=== PATIENT | female | born 1935 | race American Indian/Alaskan Native ===

== ENCOUNTER 2020-01-08 22:10 | Emergency (ER) | payer BC, OTHER ==
[~2020-01-08] VITALS: Ht 160 cm; Wt 72.6 kg
[~2020-01-08 22:10] MED LIST: ASPIRIN325 MG PO; BONIVA150 MG PO; CALCIUM + VITA1 EACH PO; CLINDAMYCIN HC300 MG PO; FOLIC ACID1 MG PO; ISOSORBIDE DINI30 MG PO; JANUVIA100 MG PO; LANTUS100 UNIT/1 SQ; LANTUS100 UNITS/ SUB-Q; LASIX40 MG PO; LOTENSIN40 MG PO; NORCO 5-325 TA1 EACH PO; NORVASC10 MG PO; OMEGA-3 KRILL1 EACH PO; PERCOCET 5-3251 EACH PO; PLAVIX75 MG PO; STROVITE FORTE1 EACH PO; SYNTHROID112 MCG PO; TOPROL XL100 MG PO; VITAMIN D31000 UNIT PO; ZOCOR40 MG PO
[2020-01-08] MEDS ORDERED: NORCO 5-325 TA1 EACH PO (22:43)
== END 2020-01-08 22:56 | disposition home or self-care (01) ==
LOC: ED 22:10
DX: R07.81 Pleurodynia (principal); E11.9 Type 2 diabetes mellitus without complications; E03.9 Hypothyroidism, unspecified; I10 Essential (primary) hypertension; I25.2 Old myocardial infarction; Z87.891 Personal history of nicotine dependence; Z88.8 Allergy status to other drugs, medicaments and biological substances; Z88.0 Allergy status to penicillin; Z79.899 Other long term (current) drug therapy; Z79.4 Long term (current) use of insulin; Z79.82 Long term (current) use of aspirin
CPT/HCPCS: 71046; 99283-25

== ENCOUNTER 2020-01-20 02:58 | Emergency (ER) | payer BC, OTHER ==
[~2020-01-20] VITALS: Ht 160 cm; Wt 70.3 kg
--- OUTSIDE RECORDS SUMMARY | 2020-01-20 03:00 | XMS ---
PreManage Notification: ION CANTU Security Station Cashier Events No recent Security Events currently on file CRITERIA MET - [facility] - 2 Visits in 30 Days CARE PROVIDERS There are no care providers on record at this time. Gloria has no Care Guidelines for this patient. [place] VISIT COUNT (12 MO.) [facility] NOTE: Visits indicate total known visits. ED/C VISIT TRACKING (12 MO.) 01/20/2020 02:58 [facility] TYPE: Emergency COMPLAINT: - FALL 01/08/2020 22:[address] [facility] TYPE: Emergency COMPLAINT: - RIB PAIN DIAGNOSES: - Old myocardial infarction - Hypothyroidism, unspecified - Pleurodynia - longterm (current) use of insulin - Other terminal clerk (current) drug therapy - Allergy status to other drugs, medicaments and biological substances - Type 2 diabetes mellitus without complications - Allergy status to penicillin - longterm (current) use of aspirin - Essential (primary) hypertension - Personal history of nicotine dependence INPATIENT VISIT TRACKING (12 MO.) No inpatient visits to display in this time frame [email or web address]
== END 2020-01-20 04:56 | disposition home or self-care (01) ==
LOC: ED 02:58
DX: S42.254A Nondisplaced fracture of greater tuberosity of right humerus, initial encounter for closed fracture (principal); W01.198A Fall on same level from slipping, tripping and stumbling with subsequent striking against other object, initial encounter; E11.9 Type 2 diabetes mellitus without complications; E03.9 Hypothyroidism, unspecified; I10 Essential (primary) hypertension; I25.2 Old myocardial infarction; Z87.891 Personal history of nicotine dependence; Z88.0 Allergy status to penicillin; Z88.8 Allergy status to other drugs, medicaments and biological substances; Z79.899 Other long term (current) drug therapy; Z79.82 Long term (current) use of aspirin; Z79.4 Long term (current) use of insulin
CPT/HCPCS: 73030; 99283-25

== ENCOUNTER 2021-03-01 16:15 | Emergency (ER) | payer OTHER ==
[~2021-03-01] VITALS: Ht 160 cm; Wt 70.3 kg
[2021-03-01] MEDS ORDERED: CRESTOR5 MG PO (16:30)
[2021-03-01] MEDS ORDERED: METFORMIN HCL500 MG PO (16:31)
== END 2021-03-01 19:54 | disposition home or self-care (01) ==
LOC: ED 16:15
DX: S30.0XXA Contusion of lower back and pelvis, initial encounter (principal); W18.30XA Fall on same level, unspecified, initial encounter; E11.9 Type 2 diabetes mellitus without complications; E03.9 Hypothyroidism, unspecified; I10 Essential (primary) hypertension; I25.2 Old myocardial infarction; Z87.891 Personal history of nicotine dependence; Z88.0 Allergy status to penicillin; Z88.8 Allergy status to other drugs, medicaments and biological substances; Z88.1 Allergy status to other antibiotic agents; Z79.899 Other long term (current) drug therapy; Z79.82 Long term (current) use of aspirin; Z79.4 Long term (current) use of insulin; Z79.84 Long term (current) use of oral hypoglycemic drugs
CPT/HCPCS: 70450; 71045; 72100; 72125; 72170; 73502; 99284-25

== ENCOUNTER 2024-01-04 02:32 | Inpatient (IN) | payer MEDICARE, OTHER ==
[2024-01-04] VITALS (8 sets, daily range): BP systolic 136–199; BP diastolic 55–83
[~2024-01-04] VITALS: Ht 160 cm; Wt 68.0 kg
[~2024-01-04 02:32] MED LIST changes: +ACETAMINOPHEN500 MG PO; +ALLER-TEC10 MG PO; +ARICEPT5 MG PO; +DOCUSATE SODIU100 M1 PO; +HYDROMORPHONE HC2 MG PO; +IBUPROFEN600 MG PO; +ISOSORBIDE MONO30 MG PO; +KLOR-CON 1010 MEQ PO; -LANTUS100 UNITS/ SUB-Q; +LIDOCAINE HCL30 M1 MM; +METAMUCIL660 GM PO; +METFORMIN HCL500 MG PO; +NORVASC5 MG PO; +ROSUVASTATIN CA20 MG PO; +SEMGLEE (Y100 UNIT/2 SUB-Q; +SYNTHROID100 MCG PO; -SYNTHROID112 MCG PO; +TUCKS1 EAC1 TOP
[2024-01-04] MEDS ORDERED: NITROGLYCERIN PACKET TOP ONE (02:45)
[2024-01-04 02:57] LABS: PLATELET COUNT 228 K/uL (140-440)
[2024-01-04 03:00] LABS: BASOPHILS 0.5 % (0-2); EOSINOPHILS 0.7 % (0-6); HEMATOCRIT 38.6 % (35.0-50.0); HEMOGLOBIN 12.9 g/dL (12.0-18.0); LYMPHOCYTES 12.4 % (24-44); MCH 29.3 (27-36); MCHC 33.6 g/dl (30-36); MCV 87.3 fl (81-99); MONOCYTES 8.3 % (0-12); NEUTROPHILS 78.1 % (39-80); RBC 4.42 M/ul (4.3-5.7); RDW 13.9 (10.5-15.0)
[2024-01-04 03:07] LABS: PROTIME 12.8 Sec (11.2-14.2)
[2024-01-04 03:14] LABS: AMPHETAMINES, URINE NEGATIVE (NEGATIVE); BARBITURATES, URINE NEGATIVE (NEGATIVE); BENZODIAZEPINE, URINE NEGATIVE (NEGATIVE); BUPRENORPHINE, URINE NEGATIVE (NEGATIVE); CANNABINOID, URINE NEGATIVE (NEGATIVE); COCAINE, URINE NEGATIVE (NEGATIVE); ECSTASY, URINE NEGATIVE (NEGATIVE); FENTANYL, URINE NEGATIVE (NEGATIVE); METHADONE, URINE NEGATIVE (NEGATIVE); OPIATES, URINE NEGATIVE (NEGATIVE); OXYCODONE, URINE NEGATIVE (NEGATIVE); PHENCYCLIDINE, URINE NEGATIVE (NEGATIVE)
[2024-01-04 03:19] LABS: ALBUMIN 3.4 g/dL (3.4-5.0); ALBUMIN/GLOBULIN RATIO 0.79 (1.1-2.4); ANION GAP 16.1 (7-21); BILIRUBIN, TOTAL 1.5 ng/dL (0.2-1.0); BUN/CREATININE RATIO 13.11 (6.0-28.6); CALCIUM 8.7 mg/dL (8.5-10.1); CREATININE, SERUM 1.83 mg/dL (0.55-1.02); MAGNESIUM 2.3 mg/dL (1.8-2.4); POTASSIUM 3.1 mmol/L (3.5-5.1); PROTEIN, TOTAL 7.7 g/dL (6.4-8.2)
[2024-01-04 03:40] LABS: BILIRUBIN, URINE NEGATIVE (negative); BLOOD/HGB, URINE NEGATIVE (Negative); KETONE, URINE NEGATIVE (Negative); LEUK ESTERASE, URINE NEGATIVE (negative); NITRITE, URINE NEGATIVE (negative); PH, URINE 6.5 (5-7)
[2024-01-04 03:45] LABS: EPITHELIAL CELLS, URINE SQUAMOUS 1+ /lpf (0-1+)
[2024-01-04] MEDS ORDERED: POTASSIUM CHLORIDE 10 MEQ TABCR PO ONE (03:45)
[2024-01-04 03:46] LABS: BACTERIA, URINE RARE /hpf (negative); CASTS, URINE NONE SEEN \\lpf; COLLECTION TYPE, URINE CLEAN CATCH; CRYSTALS, URINE NONE SEEN (0-1+); REFLEX CULTURE, URINE No (No); WHITE BLOOD CELLS, URINE 0-1 /HPF (0-5)
[2024-01-04] MEDS ORDERED: CEFTRIAXONE/SODIUM CHLORIDE 2 GM/100 ML PIGGYBACK IV ONE (05:00)
[2024-01-04] MEDS ORDERED: hydrALAZINE HCL 20 MG/ML VIAL IV ONE (05:00)
[2024-01-04] MEDS ORDERED: IBUPROFEN 600 MG TAB PO PRN (05:15)
[2024-01-04] MEDS ORDERED: HYDROmorphone HCL 1 MG/ML SYR IV PRN ×2 (05:15→07:30)
[2024-01-04] MEDS ORDERED: ondansetron HCL 4 MG/2 ML VIAL IV PRN ×2 (05:15→07:30)
[2024-01-04] MEDS ORDERED: DEXTROSE 5% - LACTATED RINGERS 1,000 ML IV SCH (05:15)
[2024-01-04 06:01] LABS: ABO A; ANTIBODY SCREEN NEGATIVE; RH POSITIVE
--- NOTE | 2024-01-04 06:05 | NUR ---
Patient arrives to CCU room 127 via stretcher. Patient confused to situation, surroundings, date, time. Oriented to self and states lives at home alone with nephew who "checks on her". On RA, HR NSR in 70s with few PVCs noted. Systolic murmur noted. Pt unsure of last BM. Skin grossly intact-- healing scabs noted scattered on bilat lower legs. Trace edema noted to bilat legs. Pt flinches when palpated pulses, states had "a surgery long ago". Unable to recall any health hx at this time, or medications, drug allergies etc. Hx and assessment complete with best ability given pt limited memory. Bed alarm in place. IV infusing per order.
--- NOTE | 2024-01-04 06:30 | EKG ---
[facility] [address] [facility] [place] [address] Signed Normal sinus rhythm Left axis deviation Left ventricular hypertrophy with repolarization abnormality ( R in aVL , Polacca product ) Cannot rule out Septal infarct (cited on or before 22-OCT-2021) Abnormal ECG When compared with ECG of 23-FEB-2022 08:42, No significant change was found Confirmed by Dion Ross MD ([id number]) on 01/04/2024 6:30:35 AM Electronically Signed By: DION ROSS MD 01/04/24 0630 PATIENT NAME: ION CANTU Electrocardiogram DATE OF : 33 PHYSICIAN: DION ROSS MD REPORT #: [id number] REPORT IS CONFIDENTIAL AND NOT TO BE RELEASED WITHOUT AUTHORIZATION
[2024-01-04] MEDS ORDERED: POTASSIUM CHLORIDE 40 MEQ in DEXTROSE 5% 250 ML IV ONE (06:45)
[2024-01-04] MEDS ORDERED: OXYCODONE HCL 5 MG TAB PO PRN (07:30)
[2024-01-04] MEDS ORDERED: ACETAMINOPHEN 325 MG TAB PO PRN (07:30)
[2024-01-04] MEDS ORDERED: PROCHLORPERAZINE EDISYLATE 10 MG/2 ML VIAL IV PRN (07:30)
[2024-01-04] MEDS ORDERED: LACTATED RINGER'S 1,000 ML IV SCH (07:30)
[2024-01-04] MEDS ORDERED: POTASSIUM CHLORIDE 10 MEQ TABCR PO SCH ×2 (08:00)
[2024-01-04] MEDS ORDERED: Insulin Regular, Human 100 UNIT/ML ML SUB-Q SCH (08:00)
--- NOTE | 2024-01-04 08:20 | NUR ---
UR CLINICAL REVIEW: MCG: MEETS INPT CRITERIA FOR PANCREATITIS WITH COMMON DUCT STONE CRITERIA [facility] INPT 01/04/24 @ 0500 ORDER MATCHES REG AUTH PENDING, WILL SEND CLINICALS VIA [employer] TODAY DC PLAN PENDING CASE MANAGEMENT ASSESSMENT 01/06/24
--- NOTE | 2024-01-04 08:37 | NUR ---
PATIENT UP TO VOID. PT IS A 1PA TO [facility]. PT VERY CONFUSED AND HAS BASELINE DEMENTIA PER REPORT. PT UNSURE OF WHERE SHE IS AT, BUT KNOWS SHE IS ISN'T AT HOME AND KNOWS SHE IS IN A HOSPITAL, UNSURE OF WHICH. PT ORIENTED TO SELF, BUT NOT TO ANYTHING ELSE. PT VERY FIXATED ON WIRES/CORDS/IV SITES/ID BRACELETS. PT ENDORSES PAIN IN HER MID STERNUM AREA WHEN ASKED IF SHE IS HAVING PAIN, RATING IT A 6/10. PT STATES SHE RECENTLY HAS BEEN SEEN AT [facility].
[2024-01-04] MEDS ORDERED: PANTOPRAZOLE SODIUM 40 MG TABEC PO SCH (09:00)
[2024-01-04] MEDS ORDERED: FUROSEMIDE 40 MG/4 ML VIAL IV SCH (09:00)
[2024-01-04] MEDS ORDERED: DONEPEZIL HCL 5 MG TAB PO SCH (09:00)
[2024-01-04] MEDS ORDERED: CEFTRIAXONE/SODIUM CHLORIDE 2 GM/100 ML PIGGYBACK IV SCH (09:00)
[2024-01-04] MEDS ORDERED: METOPROLOL SUCCINATE 100 MG TABCR PO SCH (09:02)
[2024-01-04] MEDS ORDERED: GLUCAGON,HUMAN RECOMBINANT 1 MG/ML VIAL SUB-Q PRN (09:15)
[2024-01-04] MEDS ORDERED: IBLOOD GLUCOSE TEST STRIP 1 EA TEST XX PRN (09:15)
[2024-01-04] MEDS ORDERED: DEXTROSE 5% 1,000 ML IV PRN (09:15)
[2024-01-04] MEDS ORDERED: DEXTROSE 50% 50 ML SYR IV PRN ×2 (09:15)
--- NOTE | 2024-01-04 09:43 | CONS ---
[facility] [address] [place], [place] [address] Signed DATE OF CONSULTATION: 01/04/2024 CHIEF COMPLAINT: Epigastric/chest pain. HISTORY OF PRESENT ILLNESS: Ion is an 88-year-old female, who appears to have moderately significant dementia. She was talking about chest pain and had an emesis yesterday about 2 hours prior to admission. She apparently lives alone, but does not drive. In the emergency room, she was treated for acute coronary syndrome initially. She is on Plavix, although her cardiac stent was in 2005. She was given some aspirin yesterday. Her vital signs have been fine, but her liver function test came back elevated with a slight increase in her lipase. Chest x-ray was fine. The ultrasound showed multiple gallstones. No gallbladder wall thickening. Common bile duct is unremarkable and there is no pericholecystic inflammation. Therefore, there was concern for biliary colic. She was given Rocephin and Flagyl. I was asked to admit her as a general surgeon on-call. We have contacted our hospital service as well. PAST MEDICAL HISTORY: Diabetes, hypothyroidism, hypertension, VA, back pain, congestive heart failure per the family, and dementia. PAST SURGICAL HISTORY: Includes a cardiac stent in 2005, hysterectomy and appendectomy. SOCIAL HISTORY: She does not smoke or drink. Leah Luxcliff is her primary care provider at the [facility]. She thinks she sees a airplane and engine inspector in [place], [place]. She says she lives alone, but does not drive and some young men helps her. Her daughter is Margy at [phone]. FAMILY HISTORY: She is not able to provide that. REVIEW OF SYSTEMS: She really could not provide that either. ALLERGIES: Ferrlecit, penicillin and . MEDICATIONS: 1. Tylenol. 2. Folate. Electronically Signed By: MARY CARMEN MEDLEY MD 01/04/24 0943 PATIENT NAME: ION CANTU CONSULTATION DATE OF : 33 REPORT #: [id number] PHYSICIAN: MARY CARMEN MEDLEY MD PCP: LEAH TAMEZ PAC REPORT IS CONFIDENTIAL AND NOT TO BE RELEASED WITHOUT AUTHORIZATION [facility] [address] [place] [id number] Signed 3. Metoprolol. 4. Levothyroxine. 5. Insulin. 6. Rosuvastatin. 7. Plavix. 8. Amlodipine. 9. Potassium chloride. 10. Isosorbide. 11. Lasix. 12. Aricept. PHYSICAL EXAMINATION: VITAL SIGNS: Her blood pressure is 136/58, heart rate 71, respiratory rate 14, temperature is 98.1. She is 98% on room air. She is 5 feet 3 inches at 68 kg. The body mass index is 26. GENERAL: Ion is an 88-year-old female lying supine in her hospital bed, sleeping. She was aroused, alert and awake, and interactive. She clearly has dementia. LUNGS: Clear to auscultation bilaterally. HEART: Regular rate and rhythm with a quiet 3/6 systolic murmur. ABDOMEN: Soft and flat, nontender. There are no palpable masses. LABORATORY DATA: Her white blood cell count is 10.9, hemoglobin 12 neutrophils 78. Potassium is 3.1, creatinine 1.83. Troponin was negative. INR 1. Urinalysis negative. Total bilirubin slightly up at 1.5, AST 500, ALT 211, alkaline phosphatase 146, lipase 101. BNP is up at 1865, albumin is 3.4. Urine drug screen was negative. An EKG was done, but it is not on the chart currently. RADIOGRAPHIC STUDIES: Chest x-ray was unremarkable. The ultrasound showed cholelithiasis with no gallbladder wall thickening. The common bile duct is unremarkable at 5.9 mm. There is no pericholecystic inflammation. ASSESSMENT AND PLAN: Ion is an 88-year-old female with dementia, who appears to have had an episode of biliary colic and possibly biliary pancreatitis on admission to the hospital. At this point, we are going to admit her and we will hold the Plavix and we will acquire some of her previous records from the [facility] as well as her airplane and engine inspector and try to sort this out while we are waiting for the Plavix to wear off. We will have to talk to her daughter as well. She may need her gallbladder removed here in a few days. I reviewed this with Ion. She has expressed understanding and agrees with the above plan. Electronically Signed By: MARY CARMEN MEDLEY MD 01/04/24 0943 PATIENT NAME: ION CANTU CONSULTATION DATE OF : 33 REPORT #: [id number] PHYSICIAN: MARY CARMEN MEDLEY MD PCP: LEAH TAMEZ PAC REPORT IS CONFIDENTIAL AND NOT TO BE RELEASED WITHOUT AUTHORIZATION [address] [address] Signed Mary Carmen Medley MD ALB/MODL /[id number] cc: Leah Medley MD Copies: LEAH TAMEZ ANDREW L MD ~ Electronically Signed By: MARY CARMEN MEDLEY MD 01/04/24 0943 PATIENT NAME: ION CANTU CONSULTATION DATE OF : 33 REPORT #: [id number] PHYSICIAN: MARY CARMEN MEDLEY MD PCP: LEAH TAMEZ REPORT IS CONFIDENTIAL AND NOT TO BE RELEASED WITHOUT AUTHORIZATION
--- NOTE | 2024-01-04 10:41 | NUR ---
SPOKE WITH DAUGHTER, CAROL ANN, ON THE PHONE. STATES PATIENT LIVES IN SINGLE LEVEL HOUSE WITH HER GRANDSON. THERE ARE MORE FAMILY MEMBERS NEXT DOOR AND WITHIN THE NEXT 3 HOUSES NEARBY. PATIENT IS GENERALLY VERY INDEPENDENT BUT DOES ALWAYS HAVE FAMILY PRESENT IN THE HOME TO ASSIST HER. NO STAIRS IN THE HOME. PATIENT HAS A WALKER SHE USES AND A WHEELCHAIR FOR OUTINGS AND DISTANCE. SHE IS CURRENTLY BEING SEEN OUTPATIENT PT TWICE A WEEK AT [facility]. [facility] PROVIDES TRANSPORT TO THESE APPOINTMENTS. FAMILY PROVIDES TRANSPORT FOR EVERYTHING ELSE. NO FINANCIAL CONCERNS. NO CASE MANAGEMENT NEEDS AT THIS TIME. INSTRUCTED TO NOTIFY STAFF IF ANYTHING CHANGES.
--- NOTE | 2024-01-04 10:59 | NUR ---
VISITED DURING SPIRITUAL CARE ROUNDS. PT VERY CONFUSED. APPEARED TO HAVE GREAT DIFFICULTY FOLLOWING CONVERSATION, KEPT ASKING ABOUT FAMILY, UNABLE TO REMEMBER RECENT STATEMENTS. STOVE BOTTOM WORKER PROVIDED SUPPORTIVE PRESENCE, HOSPITALITY, PRAYER.
--- NOTE | 2024-01-04 11:11 | NUR ---
PATIENT HAS BEEN VERY RESTLESS THIS AM, CONFUSED TO PLACE AND HAS BEEN LOOKING FOR HER FAMILY. PT HAS SET BED ALARM OFF MANY TIMES SHE IS TRYING TO GET UP TO LOOK OUT IN HALLWAY FOR HER FAMILY. PT'S DAUGHTER CAROL ANN CALLED AT [phone], AND SHE REPORTS THAT SHE PLANS TO COME IN TO SEE HER MOTHER SOMETIME TODAY. PT CONFUSED BY THE IV LINES, IV SITES, ID BANDS AND HAS PULLED OUT THE IV SITE IN LEFT AC. PT MOVING TO ROOM 121 ON MED/SURG.
[2024-01-04] MEDS ORDERED: VITAMIN D325 MCG PO (11:47)
[2024-01-04] MEDS ORDERED: ASPIRIN EC325 MG PO (11:48)
--- NOTE | 2024-01-04 11:55 | NUR ---
PATIENT TO MED SURG, SLEEPING WELL. ASSESSMENT IS COMPLETE.
[2024-01-04] MEDS ORDERED: IBLOOD GLUCOSE TEST STRIP 1 EA TEST XX SCH (12:00)
[2024-01-04] MEDS ORDERED: INSULIN LISPRO 100 UNIT/ML ML SUB-Q SCH (12:00)
--- NOTE | 2024-01-04 12:17 | NUR ---
PT UP TO USE COMMODE WITH 2 PERSON ASSIST, TOLERATED WELL. PT IN BED SITTING UP EATING LUNCH WITH DAUGHTER'S ASSISTANCE. BED ALARM ON. CALL LIGHT WITHIN REACH.
--- NOTE | 2024-01-04 16:20 | NUR ---
PATIENT UP TO COMMODE TO VOID, SMALL BM. PATIENT BACK TO BED WITH BED ALARM ON. PATIENT SALINE LOCKED DUE TO CONTINUOUSLY TRYING TO GET UP OUT OF BED.. FLOOR MAT IN PLACE.
[2024-01-04] MEDS ORDERED: PRESERVISION A1 EAC3 PO (16:26)
[2024-01-04] MEDS ORDERED: MULTI VITAMIN1 EACH PO (16:26)
--- NOTE | 2024-01-04 16:27 | NUR ---
MED REC COMPLETE
--- NOTE | 2024-01-04 16:32 | NUR ---
PATIENT IN BED AT THIS TIME. BALL ENDER AND RN ASSISTED PATIENT TO THE BEDSIDE COMMODE AND THEN BACK TO BED. CALL LIGHT WITHIN REACH, NO FURTHER NEEDS AT THIS TIME.
--- NOTE | 2024-01-04 17:35 | NUR ---
PATIENT SITTING UP IN BED TO HAVE DINNER, POOR APPETITE NOTED. PATIENT PREFERRED CHOCOLATE ENSURE INSTEAD OF REGULAR DINNER.
--- NOTE | 2024-01-04 19:42 | NUR ---
REPORT RECIEVED FROM DAY SHIFT RN. PATIENT RESTING IN BED WITH DAUGHTER AT BEDSIDE. NO FURTHER NEEDS. CALL LIGHT IN REACH.
--- NOTE | 2024-01-04 20:58 | NUR ---
PATIENT RESTING IN BED WITH DAUGHTER AT BEDSIDE. VS AND I&Os OBTAINED AND RECORDED. PATIENT KOKI WELL. SCHEDULED AND PRN PAIN MEDICATION ADMINISTERED. BS OBTAINED AND RECORDED. SS INSULIN ADMINISTERED PER ORDER. IV FLUID INFUSING PER ORDER. IV FLUSHES WNL. PATIENT EDUCATED ON IV AND TO BE VERY GENTLE WITH IT AND NOT TO PULL IN OUT. PATIENT VERBILIZES UNDERSTANDING. PATIENT UP TO BSC WITH MINIMAL SBA TO VOID. PATIENT BACK TO BED. FALL MATS IN PLACE. BED ALARM ON FOR SAFETY. PATIENT EDUCATED TO ROOM AND CALL LIGHT. COLD WASH CLOTH PLACED ON FOREHEAD. PATIENT HAS NO FURTHER NEEDS AT THIS TIME. DAUGHTER HEADED HOME FOR THE NIGHT. CALL LIGHT IN REACH.
--- NOTE | 2024-01-04 20:59 | NUR ---
VERBAL ORDER FROM MD FOR MELATONIN, ORDER REPEATED BACK TO VERIFY. EMAR UPDATED.
[2024-01-04] MEDS ORDERED: MELATONIN 3 MG TAB PO SCH (21:00)
[2024-01-04] MEDS ORDERED: SENNOSIDES/DOCUSATE 1 EA TAB PO SCH (21:00)
--- NOTE | 2024-01-04 21:35 | NUR ---
BED ALARM, ALARMING. PATIENT STATED SHE THOUGHT SOMETHING FELL ON THE GROUND AND SHE WAS TRYING TO GET IT. PRN SLEEP MEDICATION ADMINISTERED PER PATIENT REQUEST. PATIENT DENIES FURTHER NEEDS. BED ALARM ON FOR SAFETY. CALL LIGHT IN REACH.
[2024-01-05] VITALS (11 sets, daily range): BP systolic 149–196; BP diastolic 54–79
--- NOTE | 2024-01-05 00:07 | NUR ---
PATIENT RESTING IN BED ON BACK WITH EYES CLOSED. RESPIRATIONS EVEN AND UNLABORED. CALL LIGHT IN REACH.
--- NOTE | 2024-01-05 02:13 | NUR ---
PATIENT RESTING IN BED WITH EYES CLOSED. RESPIRATIONS EVEN AND UNLABORED. CALL LIGHT IN REACH.
--- NOTE | 2024-01-05 03:26 | NUR ---
PATIENT RESTING IN BED ON BACK WITH EYES CLOSED. RESPIRATIONS EVEN AND UNLABORED. CALL LIGHT IN REACH.
--- NOTE | 2024-01-05 05:29 | NUR ---
NEW BAG IV FLUID INFUSING PER ORDER. VS AND I&Os OBTAINED AND RECORDED. PATIENT UP TO BSC WITH SBA TO VOID. PATIENT BACK TO BED. PATIENT BED ALARM ON FOR SAFETY. NO FURTHER NEEDS. CALL LIGHT IN REACH.
[2024-01-05 05:48] LABS: BASOPHILS 0.6 % (0-2); HEMATOCRIT 38.1 % (35.0-50.0); HEMOGLOBIN 12.9 g/dL (12.0-18.0); LYMPHOCYTES 13.2 % (24-44); MCH 29.5 (27-36); MCHC 33.8 g/dl (30-36); MCV 87.2 fl (81-99); MONOCYTES 10.9 % (0-12); NEUTROPHILS 74.3 % (39-80); PLATELET COUNT 211 K/uL (140-440); RBC 4.36 M/ul (4.3-5.7); RDW 14.2 (10.5-15.0)
[2024-01-05 06:03] LABS: ALBUMIN 2.5 g/dL (3.4-5.0); ALBUMIN/GLOBULIN RATIO 0.64 (1.1-2.4); ANION GAP 11.7 (7-21); BILIRUBIN, TOTAL 4.1 ng/dL (0.2-1.0); BUN/CREATININE RATIO 12.2 (6.0-28.6); CALCIUM 8.3 mg/dL (8.5-10.1); CREATININE, SERUM 1.72 mg/dL (0.55-1.02); MAGNESIUM 2.3 mg/dL (1.8-2.4); PHOSPHORUS, INORGANIC 3.5 mg/dL (2.5-4.9); POTASSIUM 3.7 mmol/L (3.5-5.1); PROTEIN, TOTAL 6.4 g/dL (6.4-8.2)
--- NOTE | 2024-01-05 07:20 | NUR ---
RECEIVED REPORT FROM GERSON MARINA. PT RESTING IN BED WITH EYES CLOSED, BREATHING EVEN AND UNLABORED. CALL LIGHT WITHIN REACH.
--- NOTE | 2024-01-05 07:52 | NUR ---
UR CLINICAL REVIEW: MCG: MEETS INPT CRITERIA FOR PANCREATITIS WITH COMMON DUCT STONE CRITERIA [facility]IC[facility] INPT 01/04/24 @ 0500 ORDER MATCHES REG NO AUTH REQUIRED PER MEDICARE RULES DC PLAN PENDING CASE MANAGEMENT ASSESSMENT
--- NOTE | 2024-01-05 08:22 | NUR ---
PT RESTING IN BED WITH EYES CLOSED, AWAKENS TO RN VOICE. PT DENIES PAIN, NAUSEA AND SOB AT THIS TIME. PT STATES NO NEEDS AT THIS TIME. PT UPDATED ON POC, STATES SHE HAS NO QUESTIONS AT THIS TIME. PT DENIES TENDERNESS IN ABDOMEN AT THIS TIME, BOWEL TONES REMAIN ACTIVE, NO DISTENTION PRESENT. CALL LIGHT WITHIN REACH, PT STATES SHE WOULD LIKE TO CONTINUE TO REST. PO MEDICATIONS HELD PER DR. DAVIS D/T IMAGING SCHEDULED TODAY. PT NPO UNTIL IMAGING PER DR. DAVIS.
--- NOTE | 2024-01-05 08:51 | NUR ---
PT UP TO BSC WITH 1PA. PT BACK TO BED AFTER BSC, STATES NO NEEDS AT THIS TIME. CALL LIGHT WITHIN REACH, BED ALARM ON FOR SAFETY.
[2024-01-05] MEDS ORDERED: ISOSORBIDE MONONITRATE 30 MG TABCR PO SCH (09:00)
[2024-01-05] MEDS ORDERED: AMLODIPINE BESYLATE 5 MG TAB PO SCH (09:00)
[2024-01-05] MEDS ORDERED: LEVOTHYROXINE SODIUM 112 MCG TAB PO SCH (09:00)
--- NOTE | 2024-01-05 10:15 | NUR ---
PT RESTING IN BED WITH EYES CLOSED. DAUGHTER AT THE BEDSIDE COMPLETING MRI SCREENING FORM. NO NEEDS IDENTIFIED AT THIS TIME, CALL LIGHT WITHIN REACH.
--- NOTE | 2024-01-05 11:45 | NUR ---
PT UP TO BSC, SISTER AT THE BEDSIDE. PT BACK TO BED AFTER BSC, STATES NO FURTHER NEEDS. PT REFUSED GETTING UP TO CHAIR AT THIS TIME. CALL LIGHT WITHIN REACH.
--- NOTE | 2024-01-05 12:54 | NUR ---
PT OFF FLOOR WITH XRAY ANJALI FOR MRCP. DTR IN ROOM.
--- NOTE | 2024-01-05 13:35 | NUR ---
PT SITTING UP IN BED, DAUGHTER AT THE BEDSIDE ASSISTING PT WITH LUNCH TRAY. PT AND DAUGHTER STATE NO NEEDS CURRENTLY. CALL LIGHT WITHIN REACH.
--- NOTE | 2024-01-05 16:34 | NUR ---
PATIENT IS SITTING UPRIGHT IN BED WITH EYES OPEN AND RESPIRATIONS ARE EVEN AND UNLABORED. CALL LIGHT AND PERSONAL BELONGINGS ARE WITHIN REACH.
--- NOTE | 2024-01-05 17:26 | NUR ---
PATIENT IS SITTING UPRIGHT IN BED AND GETTING ASSISTANCE WITH DINNER FROM AMAN GRANT. CALL LIGHT AND PERSONAL BELONGINGS ARE WITHIN REACH.
--- NOTE | 2024-01-05 17:31 | NUR ---
ASSISTED PT TO BED SIDE COMMODE. GOT PT BACK IN BED AND SAT UP FOR DINNER. BED ALARM IS ON. PT DIDNT NEED ANYTHING ELSE.
--- NOTE | 2024-01-05 19:30 | NUR ---
REPORT RECIEVED FROM DAY SHIFT RN. PATIENT RESTING IN BED. BED ALARM ON FOR SAFETY. CALL LIGHT IN REACH.
--- NOTE | 2024-01-05 19:50 | NUR ---
RACHAEL VARGAS PT OUT OF BED, WITH IV STRECHED. EASILY REDIRECTED BACK TO BED, GERSON ARIAS WILL ASSIST HER TO BSC.
--- NOTE | 2024-01-05 20:00 | NUR ---
IN RM pt BED ALARM SOUNDING. pt SITTING AT EDGE OF BED STATING SHE HAD TO PEE. THIS RN AND NON EMERGENCY SERVICES AMBULANCE DRIVER GOT HELPED pt TRANSFER VIA SBA TO BSC. pt HAD A SM BM AND URINATED. THIS RN HELP pt TRANSFER BACK TO THE BED. AND HELPED THE pt GET COMFORTABLE. pt DENIES ANY OTHER NEEDS AT THIS TIME. CALL LIGHT WITHIN REACH.
[2024-01-05] MEDS ORDERED: NITROGLYCERIN 0.4 MG SUBL SL PRN (20:30)
--- NOTE | 2024-01-05 20:31 | NUR ---
PATIENT WITH COMPLAINTS OF CHEST PAIN. PATIENT UNABLE TO RATE HER PAIN, BUT STATES THE PAIN IS IN HER MID/LEFT CHEST. MD NOTIFIED. NEW ORDERS RECIEVED. VERIFIED USING REPEATBACK METHOD.
--- NOTE | 2024-01-05 20:50 | NUR ---
PRN MEDICATION ADMINISTERED.
--- NOTE | 2024-01-05 21:36 | NUR ---
THIS RN CALLED MD REGARDING PATIENT TROPONIN LAB. MD STATES TROPONIN LABS ARE NEGATIVE. NO NEW ORDERS.
--- NOTE | 2024-01-05 21:48 | NUR ---
COIN MACHINE SERVICER REPAIRER 1PA PT TO BSC. PT ABLE TO VOID. PT ASSISTED BACK TO BED. OUTPUT NOTED. PT STATES NO FURTHER NEEDS AT THIS TIME. CALL LIGHT WITHIN REACH AND BED ALARM ON WITH RN IN ROOM.
--- NOTE | 2024-01-05 21:50 | NUR ---
PATIENT UP TO BSC WITH SBA TO VOID. PATIENT BACK TO BED. SCHEDULED MEDICATION ADMINISTERED. BS OBTAINED AND RECORDED. SS INSULIN ADMINSITERED PER ORDER. IV FLUSHES WNL. PATIENT DENIES PAIN AT THIS TIME. BED ALARM ON FOR SAFETY. CALL LIGHT IN REACH.
--- NOTE | 2024-01-05 23:12 | NUR ---
PATIENT RESTING IN BED. WARM BLANKET PROVIDED. PATIENT DENIES FURTHER NEEDS. CALL LIGHT IN REACH.
[2024-01-06] VITALS (8 sets, daily range): BP systolic 142–200; BP diastolic 56–66
--- NOTE | 2024-01-06 00:08 | NUR ---
CALL LIGHT ANSWERED. PT NEEDED TO USE BAHTROOM. BRIGHT CUTTER 1PA TO BSC. PT VOIDED AND ASSISTED BACK TO BED. OUTPUT NOTED. PT STATES NO FURTHER NEEDS AT THIS TIME. CALL LIGHT WITHIN REACH AND BED ALARM ON.
--- NOTE | 2024-01-06 01:18 | NUR ---
CALL LIGHT ANSWERED. PATIENT UP WITH 1P SBA TO BSC TO VOID. PATIENT BACK TO BED. BED ALARM ON FOR SAFETY. CALL LIGHT IN REACH.
--- NOTE | 2024-01-06 02:10 | NUR ---
PATIENT RESTING IN BED ON BACK WITH EYES CLOSED. RESPIRATIONS EVEN AND UNLABORED. CALL LIGHT IN REACH.
--- NOTE | 2024-01-06 03:31 | NUR ---
CALL LIGHT ANSWERED. PATIENT UP TO BSC TO VOID USING SBA. PATIENT BACK TO BED. PATIENT IV LEAKING. IV DCd WNL WITH TIP INTACT. NEW IV PLACED IN LEFT FOREARM BY THIS RN. PATIENT KOKI WELL. IV INFUSING FLUID PER ORDER. BED ALARM ON FOR SAFETY. PATIENT HAS NO FURTHER NEEDS. CALL LIGHT IN REACH.
--- NOTE | 2024-01-06 04:23 | NUR ---
CALL LIGHT ANSWERED. PT NEEDED TO USE BATHROOM. MIDDLE SCHOOL ART TEACHER 1PA TO BSC. PT VOIDED AND ASSISTED BACK TO BED. PT STATES NO FURTHER NEEDS AT THIS TIME. CALL LIGHT WITHIN REACH AND BED ALARM ON.
[2024-01-06 05:30] LABS: BASOPHILS 0.5 % (0-2); EOSINOPHILS 1.4 % (0-6); HEMATOCRIT 37.8 % (35.0-50.0); HEMOGLOBIN 12.8 g/dL (12.0-18.0); MCH 29.6 (27-36); MCHC 33.9 g/dl (30-36); MCV 87.4 fl (81-99); MONOCYTES 11.4 % (0-12); NEUTROPHILS 71.7 % (39-80); PLATELET COUNT 210 K/uL (140-440); RBC 4.32 M/ul (4.3-5.7); RDW 14.3 (10.5-15.0)
--- NOTE | 2024-01-06 05:47 | NUR ---
MD NOTIFIED OF PATIENTS BP. STATES TO GIVE PATIENT A DOSE OF PRN PAIN MEDICATION. PRN MEDICATION ADMINISTERED. NO FURTHER NEEDS. CALL LIGHT IN REACH.
[2024-01-06 05:51] LABS: ALBUMIN 2.5 g/dL (3.4-5.0); ALBUMIN/GLOBULIN RATIO 0.61 (1.1-2.4); ANION GAP 11.7 (7-21); BILIRUBIN, TOTAL 3.1 ng/dL (0.2-1.0); BUN/CREATININE RATIO 13.83 (6.0-28.6); CALCIUM 8.4 mg/dL (8.5-10.1); CREATININE, SERUM 1.59 mg/dL (0.55-1.02); MAGNESIUM 2.2 mg/dL (1.8-2.4); PHOSPHORUS, INORGANIC 2.4 mg/dL (2.5-4.9); POTASSIUM 3.7 mmol/L (3.5-5.1); PROTEIN, TOTAL 6.6 g/dL (6.4-8.2)
--- NOTE | 2024-01-06 06:23 | NUR ---
SALVAGE INSPECTOR WOOD PARTS 1PA PT TO BSC. PT VOIDED AND HAD SMALL BM. PT THEN ASSISTED WITH PUTTING ON NEW BREIF AND WAS ASSISTED BACK TO BED. OUTPUT NOTED AND PT STATES NO FURTHER NEEDS AT THIS TIME. CALL LIGHT WITHIN REACH AND BED ALARM ON.
[2024-01-06] MEDS ORDERED: SODIUM PHOSPHATE 30 MMOL in DEXTROSE 5% 250 ML IV ONE (07:15)
--- NOTE | 2024-01-06 07:15 | NUR ---
REPORT RECEIVED FROM CHEMICAL LAB SUPERVISOR RN. PATIENT RESTING IN BED, CONFUSED. REORIENTED TO CURRENT SITUTATION AND PLACE. NO FURTHER NEEDS AT THIS TIME. BED ALARM ON. CALL LIGHT WITHIN REACH.
--- NOTE | 2024-01-06 07:20 | NUR ---
PT LYING IN BED, AWAKENS TO RN IN ROOM. PT STATES SHE IS CONFUSED, DOES NOT KNOW WHERE SHE IS. PT REORIENTED, UPDATED ON POC. PT STATES SHE UNDERSTANDS PLAN AT THIS TIME. PT DENIES ANY CURRENT NEEDS. CALL LIGHT WITHIN REACH. BED ALARM ON FOR SAFETY.
--- NOTE | 2024-01-06 07:50 | NUR ---
PT TO IMAGING.
--- NOTE | 2024-01-06 08:07 | NUR ---
Patient was awake but extremely confused. Toileting was offered but refused, other cares were accepted. Tech entered and took the patient to imaging.
--- NOTE | 2024-01-06 09:05 | NUR ---
PT CONTINUES TO BE OFF MEDICAL FLOOR FOR IMAGING.
--- NOTE | 2024-01-06 10:25 | NUR ---
PT LYING IN BED AWAKE IN BED, DAUGHTER AT THE BEDSIDE. PT DENIES PAIN, INCLUDING TO PALPATION OF ABDOMEN. PT DENIES NAUSEA AND SOB AT THIS TIME. PT TOLERATING NPO AT THIS TIME, TAKES PO MEDICATIONS PER MD ORDER AND OKAY FROM IMAGING WITH SMALL SIPS OF WATER W/O DIFFICULTY. PT STATES NO NEEDS AT THIS TIME, PT AND DAUGHTER UPDATED ON POC, PT AND DAUGHTER STATE NO FURTHER QUESTIONS AT THIS TIME. CALL LIGHT WITHIN REACH, BED ALARM ON FOR SAFETY.
--- NOTE | 2024-01-06 10:42 | NUR ---
IMAGING ARRIVES TO TAKE PT FOR IMAGING. PT WHEELED FROM UNIT BY IMAGING STAFF.
--- NOTE | 2024-01-06 11:32 | NUR ---
PT RESTING IN BED WITH EYES CLOSED, BREATHING EVEN AND UNLABORED. CALL LIGHT WITHIN REACH. BED ALARM ON FOR SAFETY.
--- NOTE | 2024-01-06 11:36 | NUR ---
THIS RN CONTACTS IMAGING DEPARTMENT REGARDING PLANS FOR IMAGING, IMAGING STAFF STATES IMAGING ORDERED IS COMPLETE AT THIS TIME AND NPO STATUS CAN END AT THIS TIME.
[2024-01-06] MEDS ORDERED: FUROSEMIDE 40 MG TAB PO ONE (12:00)
--- NOTE | 2024-01-06 12:08 | NUR ---
Patient was asleep in bed and woke up upon entering the room. They complained of being cold and asked for a warm blanket that was then given. No other cares were requested.
--- NOTE | 2024-01-06 14:02 | NUR ---
PT RESTING IN BED WITH EYES CLOSED, DAUGHTER AT THE BEDSIDE. CALL LIGHT WITHIN REACH.
--- NOTE | 2024-01-06 14:38 | NUR ---
VISITED DURING SPIRITUAL CARE ROUNDS. PT APPEARED TO BE SLEEPING. DID NOT DISTURB. PROVIDED PRAYER.
--- NOTE | 2024-01-06 15:00 | NUR ---
Patient was awake and their daughter was visiting. BSC was offered and refused. Applesauce was requested and given. No other cares were requested.
--- NOTE | 2024-01-06 15:31 | EKG ---
[facility] [address] [facility] [place] [address] Signed Normal sinus rhythm Left axis deviation Left ventricular hypertrophy with repolarization abnormality Cannot rule out Septal infarct (cited on or before 22-OCT-2021) Abnormal ECG When compared with ECG of 04-JAN-2024 02:39, No significant change was found Confirmed by Dion Ross MD ([id number]) on 01/06/2024 3:30:51 PM Electronically Signed By: DION ROSS MD 01/06/24 1531 PATIENT NAME: ION CANTU Electrocardiogram DATE OF : 33 PHYSICIAN: DION ROSS MD REPORT #: [id number] REPORT IS CONFIDENTIAL AND NOT TO BE RELEASED WITHOUT AUTHORIZATION
--- NOTE | 2024-01-06 15:36 | NUR ---
PATIENT IN BED AT THIS TIME. FLUID PUMP OPERATOR ASSISTED PATIENT TO BEDSIDE COMMODE AND THEN BACK TO BED. PATIENT IS A ONE PERSON ASSIST. CALL LIGHT WITHIN REACH, NO FURTHER NEEDS AT THIS TIME.
--- NOTE | 2024-01-06 15:40 | NUR ---
PT SITTING UP IN BED, DAUGHTER AT THE BEDSIDE. PT DENIES PAIN AND NAUSEA AT THIS TIME. PT WAS ABLE TO EAT LUNCH W/O DIFFICULTY WITH ASSISTANCE FROM DAUGHTER. PT AND DAUGHTER STATE NO CURRENT NEEDS, CALL LIGHT WITHIN REACH.
--- NOTE | 2024-01-06 16:50 | NUR ---
THIS RN RESPONDS TO CALL LIGHT. PT LYING IN BED AWAKE, DAUGHTER AT THE BEDSIDE. PT STATES SHE NEEDS TO USE RESTROOM, PT UP TO [facility] WITH 1PA. PT'S IV CLAVE BECOMES UNATTATCHED FROM IV, BLOOD FROM IV GETS ON DRESSING, PT GOWN AND IN CLAVE. CLAVE REPLACED, IV FLUSHED, PATENT. OLD DRESSING REMOVED, AREA CLEANED WITH CHLORAHEXADINE, SKIN PREP PLACED, NEW DRESSING IN PLACE. NEW GOWN IN PLACE. PT BACK TO BED FROM [facility], HAS ASSISTANCE FROM NURSING STAFF TO BOOST UP IN BED AND REPOSITION. DINNER TRAY SET UP FOR PT, DAUGHTER STATES SHE WILL ASSIST PT WITH DINNER. PT STATES NO FURTHER NEEDS AT THIS TIME, CALL LIGHT WITHIN REACH.
[2024-01-06 19:09] LABS: HEPATITIS A ANTIBODY, IGM Negative (Negative); HEPATITIS B CORE ANTIBODY, IGM Negative (Negative); HEPATITIS B SURFACE ANTIGEN Negative (Negative); HEPATITIS C AB CIA INTERP Negative (Negative); HEPATITIS C ANTIBODY CIA INDEX 0.08 IV (())
--- NOTE | 2024-01-06 19:31 | NUR ---
REPORT RECIEVED FROM DAY SHIFT RN. PATIENT RESTING IN BED. DENIES NEEDS AT THIS TIME. CALL LIGHT IN REACH.
--- NOTE | 2024-01-06 21:28 | NUR ---
CALL LIGHT ANSWERED. PATIENT UP TO BATHROOM USING 1PA AND BSC TO VOID. PATIENT BACK TO BED. BED ALARM ON FOR SAFETY. NO FURTHER NEEDS AT THIS TIME. CALL LIGHT IN REACH.
--- NOTE | 2024-01-06 22:46 | NUR ---
PATIENT RESTING IN BED ON BACK WITH EYES CLOSED. RESPIRATIONS EVEN AND UNLABORED. CALL LIGHT IN REACH.
--- NOTE | 2024-01-06 23:58 | NUR ---
PATIENT RESTING IN BED ON BACK WITH EYES CLOSED. RESPIRATIONS EVEN AND UNLABORED. CALL LIGHT IN REACH.
[2024-01-07] VITALS (8 sets, daily range): BP systolic 100–180; BP diastolic 54–89
--- NOTE | 2024-01-07 01:17 | NUR ---
BED ALARMING SOUNDING. PATIENT UP TO BSC WITH 1P SBA AND FWW TO VOID. PATIENT BACK TO BED. BED ALARM ON FOR SAFETY. PATIENT HAS NO FURTHER NEEDS. CALL LIGHT IN REACH.
--- NOTE | 2024-01-07 02:46 | NUR ---
PATIENT RESTING IN BED WITH EYES CLOSED. RESPIRATIONS EVEN AND UNLABORED. CALL LIGHT IN REACH.
--- NOTE | 2024-01-07 04:52 | NUR ---
PATIENT RESTING IN BED WITH EYES CLOSED. RESPIRATIONS EVEN AND UNLABORED. CALL LIGHT IN REACH.
--- NOTE | 2024-01-07 05:31 | NUR ---
CNAO BTIANED VITALS AND I&O. PT STATES NO NEEDS AT THIS TIME. CALL LIGHT WITHIN REACH AND BED ALARM ON.
[2024-01-07 05:36] LABS: BASOPHILS 0.7 % (0-2); HEMATOCRIT 35.2 % (35.0-50.0); LYMPHOCYTES 18.4 % (24-44); MCH 29.8 (27-36); MCHC 34.1 g/dl (30-36); MCV 87.2 fl (81-99); MONOCYTES 10.9 % (0-12); PLATELET COUNT 218 K/uL (140-440); RBC 4.04 M/ul (4.3-5.7); RDW 14.1 (10.5-15.0)
[2024-01-07 05:59] LABS: ALBUMIN 2.4 g/dL (3.4-5.0); ALBUMIN/GLOBULIN RATIO 0.65 (1.1-2.4); ANION GAP 10.2 (7-21); BILIRUBIN, TOTAL 1.5 ng/dL (0.2-1.0); BUN/CREATININE RATIO 11.51 (6.0-28.6); CALCIUM 8.3 mg/dL (8.5-10.1); CREATININE, SERUM 1.65 mg/dL (0.55-1.02); MAGNESIUM 2.1 mg/dL (1.8-2.4); POTASSIUM 3.2 mmol/L (3.5-5.1); PROTEIN, TOTAL 6.1 g/dL (6.4-8.2)
--- NOTE | 2024-01-07 07:17 | NUR ---
Pt report received from GERSON Hidalgo. Pt is resting, supine, in bed, eyes closed, lights off, breathing regular, even and non-labored.
--- NOTE | 2024-01-07 07:46 | NUR ---
patient up to bsc and back to bed w/ 1pa. am care completed, warm blankets given, pt has no other requests at this time. fall mats down, bed alarm on, and call light within reach.
[2024-01-07] MEDS ORDERED: metroNIDAZOLE 250 MG TAB PO SCH (08:00)
--- NOTE | 2024-01-07 08:58 | NUR ---
Patient called asking for assitance to BSC. When back in back, they reported being cold. A warm blanket was brought and given. After blood sugar check was done and entered into the system, no other cares were requested.
[2024-01-07] MEDS ORDERED: LEVOTHYROXINE SODIUM 100 MCG TAB PO SCH (09:00)
[2024-01-07] MEDS ORDERED: SENNOSIDES/DOCUSATE 1 EA TAB PO SCH (09:00)
--- NOTE | 2024-01-07 10:27 | NUR ---
VISITED DURING SPIRITUAL CARE ROUNDS. PT VERY HARD OF HEARING; APPEARED ORIENTED TO CONVERSATION; DECLINED LUMBER STACKER VISIT. COOPERAGE SHOP SUPERVISOR PROVIDED SUPPORTIVE PRESENCE, HOSPITALITY, PRAYER. PT EXPRESSED GRATITUDE.
--- NOTE | 2024-01-07 10:40 | NUR ---
Daughter in room visiting. No cares were requested.
[2024-01-07] MEDS ORDERED: POTASSIUM BICARBONATE/CIT AC 20 MEQ TABEF PO ONE (12:30)
--- NOTE | 2024-01-07 13:30 | NUR ---
Spoke with pt and daughter. Plan remains for pt to have surgery on Wednesday. They deny any needs.
--- NOTE | 2024-01-07 14:08 | NUR ---
Patient called asking for assistance to BSC. Once done, they did not want back in their chair and instead went back to bed. Bed alarm was reset and tray set over the patient's lap. No other cares were requested.
--- NOTE | 2024-01-07 14:44 | NUR ---
PT CALLED TO USE THE BATHROOM. SBA OUT OF BED TO THE BATHROOM. ASSISTED WITHOUT ANY ISSUES, FALL MATS REPLACED ON SIDE OF BED. CALL LIGHT WITHIN REACH, DENIES ANY FURTHER NEEDS. FAMILY PRESENT AT BEDSIDE, SITTING IN CHAIR.
--- NOTE | 2024-01-07 18:08 | NUR ---
PT ATE DINNER WELL AND HAS NO C/O'S AT THIS TIME. PT IS VERY CLEAN AND HOW SHE WANTS THINGS ON THE BEDSIDE STAND AND IN HER ROOM. ROOM PICKED UP PER PT'S REQUEST. ROOM WAS NOT DIRTY AND ONLY MOVED WATER CUP THAT SHE DID NOT WANT ON BEDSIDE STAND. FAMILY IS AT THE BEDSIDE.
--- NOTE | 2024-01-07 19:23 | NUR ---
Received report from GERSON Valverde. Pt resting in bed, family visiting at bedside. Denies needs. Call light within reach.
--- NOTE | 2024-01-07 20:30 | NUR ---
PT RESTING IN BED. VSS. BED ALARM IN PLACE FOR SAFETY-PT IS IMPULSIVE. ORIENTED X SELF AND HOSPITAL. DENIES PAIN. LSC. HRR. BTA, ABD SOFT AND NON-TENDER. DENIES N/V. PT HAS FREQUENCY AND URGENCY, UP TO BSC W/ 1 ASSIST. LBM TODAY. LFA SL. CALL LIGHT WITHIN REACH.
--- NOTE | 2024-01-07 22:38 | NUR ---
PT SLEEPING SOUNDLY. APPEARS COMFORTABLE. BED ALARM IN PLACE FOR SAFETY.
--- NOTE | 2024-01-07 22:50 | NUR ---
BED ALARM ANSWERED. PT SITTING AT EDGE OF BED STATING SHE NEEDED TO USE THE BATHROOM. AGRICULTURAL COMMODITIES GRADER 1PA TO BSC. PT VOIDED AND ASSISTED BACK TO BED. OUTPUT NOTED AND BSC EMPTIED. PT STATES NO FURTHER NEEDS AT THIS TIME. CALL LIGHT WITHIN REACH AND BED ALARM ON.
--- NOTE | 2024-01-07 23:32 | NUR ---
PT SLEEPING SOUNDLY. APPEARS COMFORTABLE. BED ALARM IN PLACE.
[2024-01-08] VITALS (8 sets, daily range): BP systolic 143–173; BP diastolic 63–68
--- NOTE | 2024-01-08 00:39 | NUR ---
BED ALARM ANSWERED. PT SITTING AT EDGE OF BED STATING THE NEED TO USE BATHROOM. WEED CONTROL INSPECTOR 1PA TO BSC. PT VOIDED AND HAD SMALL BM. PT ASSISTED BACK TO BED. OUTPUT NOTED AND BSC EMPTIED. PT STATES NO FURTHER NEEDS AT THIS TIME. CALL LIGHT WITHIN REACH AND BED ALARM ON.
--- NOTE | 2024-01-08 01:44 | NUR ---
PT AWAKE, SLEEPING BETWEEN CARES. WARM BLANKET GIVEN PER REQUEST. BED ALARM IN PLACE FOR SAFETY.
--- NOTE | 2024-01-08 03:37 | NUR ---
PT SLEEPING, APPEARS COMFORTABLE. CALL LIGHT WITHIN REACH.
--- NOTE | 2024-01-08 04:32 | NUR ---
BED ALARM ANSWERED. PT AT EDGE OF BED STATING THAT SHE HAAD TO USE THE BATHROOM. ANVILSMITH 1PA TO BS. PT VOIDED AND HAD SMALL BM. PT ASSISTED BACK TO BED. ANVILSMITH OBTAINED AND DOCUMENTED VITALS AND I&O. SCDS PLACED ON PT. PT STATE SNO FURTHER NEEDS AT THIS TIME. CALL LIGHT WITHIN REACH AND BED ALARM ON.
--- NOTE | 2024-01-08 04:45 | NUR ---
PT AWAKE, JUST USED BSC. BTA, NO N/V. DENIES ABD PAIN. SCD'S IN PLACE. NO OTHER NEEDS IDENTIFIED.
[2024-01-08 05:29] LABS: BASOPHILS 1.1 % (0-2); EOSINOPHILS 2.9 % (0-6); HEMATOCRIT 36.9 % (35.0-50.0); HEMOGLOBIN 12.9 g/dL (12.0-18.0); LYMPHOCYTES 24.5 % (24-44); MCH 30.3 (27-36); MCHC 34.9 g/dl (30-36); MCV 86.8 fl (81-99); MONOCYTES 13.1 % (0-12); NEUTROPHILS 58.4 % (39-80); PLATELET COUNT 219 K/uL (140-440); RBC 4.25 M/ul (4.3-5.7); RDW 14.2 (10.5-15.0)
[2024-01-08 05:44] LABS: ALBUMIN 2.5 g/dL (3.4-5.0); ALBUMIN/GLOBULIN RATIO 0.6 (1.1-2.4); ANION GAP 13.8 (7-21); BILIRUBIN, TOTAL 1.4 ng/dL (0.2-1.0); BUN/CREATININE RATIO 11.56 (6.0-28.6); CALCIUM 8.7 mg/dL (8.5-10.1); CREATININE, SERUM 1.73 mg/dL (0.55-1.02); MAGNESIUM 2.2 mg/dL (1.8-2.4); POTASSIUM 4.8 mmol/L (3.5-5.1); PROTEIN, TOTAL 6.7 g/dL (6.4-8.2)
--- NOTE | 2024-01-08 06:39 | NUR ---
PT ASSISTED TO [facility] W/ 2 ASSIST AND FWW. PT HAD SMALL SOFT BM. NO FURTHER COMPLAINTS. CALL LIGHT WITHIN REACH.
--- NOTE | 2024-01-08 07:22 | NUR ---
REPORT RECEIVED FROM GERSON CASANOVA. PT OPENS EYES WHEN THIS RN ENTERS ROOM, REQUESTS WARM BLANKET, PROVIDED. NO OTHER NEEDS AT THIS TIME, BED ALARM ON, CALL LIGHT IN REACH.
--- NOTE | 2024-01-08 07:30 | NUR ---
PATIENT UP TO BSC AND THEN TO CHAIR W/1PA. AM CARE COMPLETED, WARM BLANKETS GIVEN, BREAKFAST SET UP, CHAIR ALARM ON. PT HAS NO OTHER REQUESTS AT THIS TIME. CALL LIGHT WITHIN REACH.
--- NOTE | 2024-01-08 08:13 | NUR ---
IN FOR MEDICATION ADMINISTRATION PER MAY. PT UP IN RECLINER EATING BREAKFAST. PT IV IN L AC LEAKING AND PAINFUL. NEW IV PLACED IN R UPPER ARM, FORMER IV IN L AC REMOVED, CATH INTACT. PT TAKES MEDICATIONS WITHOUT ISSUE. NO PAIN OR NAUSEA AT THIS TIME. NO OTHER NEEDS AT THIS TIME, CHAIR ALARM ON, CALL LIGHT IN REACH.
--- NOTE | 2024-01-08 11:29 | NUR ---
INITIAL ASSESSMENT COMPLETE. PT UP IN RECLINER WITH FAMILY MEMBER AT BEDSIDE. PT REPORTS NO PAIN OR NAUSEA AT THIS TIME. NO OTHER NEEDS AT THIS TIME. CHAIR ALARM ON, CALL LIGHT IN REACH.
--- NOTE | 2024-01-08 11:55 | NUR ---
MEDICATION ADMINISTERED PER MAY. PT IS UP IN RECLINER EATING LUNCH. FAMILY MEMBER BESIDE HER. PT TAKES MEDICATION WITHOUT ISSUE. NO COMPLAINTS AT THIS TIME. CHAIR ALARM IS ON, CALL LIGHT IN REACH.
--- NOTE | 2024-01-08 13:45 | NUR ---
PATIENT UP TO SHOWER, BACK TO CHAIR, AND VISITING WITH FAMILY. ICE WATER GIVEN. PT HAS NO REQUESTS AT THIS TIME. CALL LIGHT WITHIN REACH. FAMILY IN ROOM.
--- NOTE | 2024-01-08 15:51 | NUR ---
PT TEARFUL AND EXPRESSING ANXIETY R/T SURGERY TOMORROW. PT AND PTs DAUGHTER REQUESTING PRN ANXIETY MEDICATION. DR GRAYSON INFORMED AND PLACES ORDER.
[2024-01-08] MEDS ORDERED: hydrOXYzine pamoate 25 MG CAP PO PRN (16:00)
--- NOTE | 2024-01-08 16:22 | NUR ---
PT RESTING IN BED WITH DAUGHTER AT BEDSIDE. PT APPEARS APPREHENSIVE, TEARS NOTED IN HER EYES. PRN ANXIOLYTIC ADMINISTERED ORDERED. SECOND ASSESSMENT COMPLETE. PT REPORTS NO N/V, HAS HAD MULTIPLE BOWEL MOVEMENTS TODAY. PT REPORTS NO PAIN AT THIS TIME. PT RE-ORIENTED BY DAUGHTER TO WHY SHE'S HERE. DAUGHTER REPORTS SHE ATTEMPTED TO PLAY PTs FAVOURITE MUSIC TO HELP EASE HER FEARS RE: SURGERY TOMORROW BUT HAD NO SUCCESS. DAUGHTER REMAINS AT BEDSIDE, BED IS IN LOWEST POSITION, FALL MATS IN PLACE. CALL LIGHT IN REACH.
--- NOTE | 2024-01-08 17:20 | NUR ---
MEDICATIONS ADMINISTERED PER MAR. PT IS UP IN RECLINER EATING SUPPER, DAUGHTER AT CHAIRSIDE. PT REPORTS SHE FEELS "TIRED", ASKS IF SURGERY IS IN THE MORNING. PT APPEARS CALMER AND IS SMILING WHILE CONVERSING. DAUGHTER ASSISTS PT BACK TO BED. BED IN LOWEST POSITION, CALL LIGHT IN REACH.
--- NOTE | 2024-01-08 19:20 | NUR ---
PT RESTING IN BED, FIDGETING. NO COMPLAINTS OR NEEDS IDENTIFIED. WHITE BOARD UPDATED. BED ALARM IN PLACE FOR SAFETY. CALL LIGHT WITHIN REACH.
--- NOTE | 2024-01-08 20:00 | NUR ---
PT RESTING IN BED, RESTLESS AND FIDGETING. O X SELF. EASY TO REDIRECT. DENIES PAIN. VSS. LSC. HRR W/ MURMUR. SCD'S TO BLE. BTA, ABD SOFT, NON-TENDER. LBM TODAY. URINARY URGENCY, USES BSC W/ [address] ASSIST[address] ALARM IN [address] FOR SAFETY-PT IS IMPULSIVE. RAQUEL IV RED AND IRRITATED, PAIN W/ FLUSH. IV DC'D INTACT. CALL LIGHT WITHIN REACH.
--- NOTE | 2024-01-08 20:50 | NUR ---
IN TO ASSIST PATIENT UP TO BATHROOM. UP TO BATHROOM AND THEN BACK TO BED, SBA FWW. BED ALARM ON. CALL LIGHT IN REACH. NO FURTHER NEEDS AT THIS TIME.
--- NOTE | 2024-01-08 22:05 | NUR ---
PT AWAKE, STILL SOMEWHAT RESTLESS AND FIDGETING. DENIES NEEDS. BED ALARM IN PLACE. CALL LIGHT WITHIN REACH.
--- NOTE | 2024-01-08 22:44 | NUR ---
PT RESTING, CCU RN ATTEMPTING TO PLACE NEW IV VIA US.
[2024-01-09] VITALS (9 sets, daily range): BP systolic 139–180; BP diastolic 51–60
[2024-01-09] MEDS ORDERED: LACTATED RINGER'S 1,000 ML IV SCH
--- NOTE | 2024-01-09 00:08 | NUR ---
PT ASLEEP, AWAKENS UPON RN ENTERING ROOM. IVF INITIATED AT 75MLS/HR. PT NOW NPO.
--- NOTE | 2024-01-09 01:08 | NUR ---
Pt was confused and attempting to get out of bed. Redirected and assisted Pt back into bed. No other needs expressed by Pt. Call light left in reach. Bed alarm set.
--- NOTE | 2024-01-09 01:39 | NUR ---
Assisted Pt from bed to bedside commode and back. No other needs expressed by Pt. Call light left in reach. Bed alarm set.
--- NOTE | 2024-01-09 02:59 | NUR ---
PT SLEEPING SOUNDLY. IVF INFUSING. BED ALARM IN PLACE FOR SAFETY.
--- NOTE | 2024-01-09 04:51 | NUR ---
PT SLEEPING SOUNDLY. NPO FOR SURGERY TODAY. BED ALARM IN PLACE FOR SAFETY.
--- NOTE | 2024-01-09 04:56 | NUR ---
SLEPT WELL AFTER INITIAL ANXIETY/RESTLESSNESS. PLEASANTLY CONFUSED. BED ALARM FOR SAFETY. NPO FOR LAP TONYA TODAY AT 9AM.
[2024-01-09 05:29] LABS: BASOPHILS 0.9 % (0-2); EOSINOPHILS 3.6 % (0-6); HEMATOCRIT 37.7 % (35.0-50.0); HEMOGLOBIN 12.8 g/dL (12.0-18.0); LYMPHOCYTES 28.6 % (24-44); MCH 29.6 (27-36); MCHC 33.9 g/dl (30-36); MCV 87.4 fl (81-99); MONOCYTES 12.1 % (0-12); NEUTROPHILS 54.8 % (39-80); PLATELET COUNT 245 K/uL (140-440); RBC 4.31 M/ul (4.3-5.7); RDW 14.6 (10.5-15.0)
[2024-01-09 05:41] LABS: ANION GAP 7.8 (7-21); BUN/CREATININE RATIO 11.25 (6.0-28.6); CALCIUM 9.1 mg/dL (8.5-10.1); CREATININE, SERUM 1.6 mg/dL (0.55-1.02); MAGNESIUM 2.4 mg/dL (1.8-2.4); POTASSIUM 3.8 mmol/L (3.5-5.1)
--- NOTE | 2024-01-09 06:59 | NUR ---
BILL CUTTER WIPE PT DOWN WITH PRE SURGERY WIPES AND CHANGE GOWN AND LINENS.
--- NOTE | 2024-01-09 07:15 | NUR ---
BEDSIDE REPORT RECEIVED FROM GERSON CASANOVA. PT RESTS IN BED WITH EYES CLOSED, RESP EVEN AND UNLABORED.
[2024-01-09] MEDS ORDERED: iopamidoL 30 ML VIAL ONE (08:13)
[2024-01-09] MEDS ORDERED: SODIUM CHLORIDE 0.9% 40 ML IV ONE (08:13)
[2024-01-09] MEDS ORDERED: LIDOCAINE HCL 1% 30 ML SDV ONE ×2 (08:13→08:45)
--- NOTE | 2024-01-09 08:27 | NUR ---
ROCEPHIN 2 GRAMS HELICOPTER OFFICER TO OR, SENT WITH PT TO OR.
[2024-01-09] MEDS ORDERED: ondansetron HCL 4 MG/2 ML VIAL IV PRN (08:30)
[2024-01-09] MEDS ORDERED: IBLOOD GLUCOSE TEST STRIP 1 EA TEST VI PRN (08:30)
[2024-01-09] MEDS ORDERED: NALOXONE HCL 0.4 MG SYR IV PRN (08:30)
[2024-01-09] MEDS ORDERED: fentaNYL citrate 50 MCG/ML SDV IV PRN (08:30)
--- NOTE | 2024-01-09 08:32 | NUR ---
GERSON MARIE INTO TAKE PT TO SURGERY. ROCEPHIN STARTED PRIOR TO DEPARTURE. IV TO LR PER GRAVITY. PT LEAVES UNIT ESCORTED BY GERSON MARIE.
[2024-01-09] MEDS ORDERED: ondansetron HCL 4 MG/2 ML VIAL ONE (08:45)
[2024-01-09] MEDS ORDERED: ROCURONIUM BROMIDE 50 MG/5 ML SYR ONE (08:45)
[2024-01-09] MEDS ORDERED: DEXAMETHASONE SOD PHOS 4 MG/ML VIAL ONE (08:45)
[2024-01-09] MEDS ORDERED: fentaNYL citrate 100 MCG/2 ML VIAL ONE (08:45)
[2024-01-09] MEDS ORDERED: LIDOCAINE HCL 2% 5 ML SDV ONE (08:45)
[2024-01-09] MEDS ORDERED: propofoL 200 MG/20 ML VIAL ONE (08:45)
[2024-01-09] MEDS ORDERED: SUGAMMADEX SODIUM 200 MG/2 ML ML ONE (08:47)
--- NOTE | 2024-01-09 08:50 | NUR ---
PT EXPRESSES NEED TO VOID. USES BSC, VOIDS 400 ML, CLEAR YELLOW URINE. PT BACK TO BED. PT LEAVES UNIT WITH GERSON MARIE TO SURGERY.
[2024-01-09] MEDS ORDERED: ePHEDrine sulfate 50 MG/ML AMP ONE (09:02)
[2024-01-09] MEDS ORDERED: ACETAMINOPHEN 1,000 MG/100 ML VIAL ONE (09:20)
--- NOTE | 2024-01-09 10:34 | NUR ---
01/09/24 1034 DIANA DORAN 1024 PT ARRIVED TO PACU VIA STREACHER, PT HAS ORAL AIRWAY IN PLACE, PT HAS 6L OF OXYGAN VIA MASK. PT NON RESPONSIVE TO VERBAL AND TACTILE AND STIMULI. PT BREATHING EQUAL AND UNLABORED. REPORT TAKEN FROM GUILHERME GALLARDO. ALL MONITORS ATTACHED. 1032 BLOOD GLUCOSE 172.
--- NOTE | 2024-01-09 11:21 | NUR ---
CPOX CONTINUOUS PULSOXIMETERY IN PLACE. PT OPENS EYES SPONTANEOUSLY, CONTINUES TO DENIES PAIN OR DISCOMFORT.
[2024-01-09] MEDS ORDERED: OXYCODONE HCL5 MG PO (12:03)
--- NOTE | 2024-01-09 12:15 | NUR ---
VSS. PT ROUSES EASILY TO VOICE. BED ALARM ON, FALL MATS IN PLACE. VISITORS X2 IN ROOM. LAP SITES X4 ON ABDOMEN REMAIN C/D/I. ICE OVER INCISIONS. SCDS ON ANKLE TO KNEE TO BLE. DENIES PAIN OR DISCOMFORT AT THIS TIME. RESP EVEN AND UNLABORED. CALL LIGHT IN REACH.
--- NOTE | 2024-01-09 13:08 | NUR ---
PT SITS UP IN BED, AWAKE AND ALERT TO SELF. DRINKS WATER AND ENSURE TOLERATES THIS WELL. EATS MASHED POTATOES AND GRAVEY, TOLERATES THIS WELL. TYLENOL RECEIVED PO ORDERED FOR REPORTS OF ABDMINAL PAIN, PT ABLE TO INDICATED BUT UNABLE TO ASIGN A NUMBER OUT OF 10. NO GRIMACING OR RESTLESS NOTED AT THIS TIME. FAMILY MEMBER X1 IN ROOM AT BEDSIDE, VISITS WITH PT.
--- NOTE | 2024-01-09 13:14 | NUR ---
PT TOLERATING PO INTAKE WELL AT THIS TIME. IV TO SL, FLUSHES, PATENT, NO LEAKING OR SWELLING NOTED.
--- NOTE | 2024-01-09 14:55 | NUR ---
PT RESTS IN BED, ROUSES TO VERBAL STIMULI. NO PAIN OR NAUSEA REPORTED AT THIS TIME. FAMILY MEMBER X1 AT BEDSIDE.
[2024-01-09] MEDS ORDERED: SEVOFLURANE 250 ML BTL INH ONE (16:05)
--- NOTE | 2024-01-09 17:00 | NUR ---
PT UP TO BSC WITH SBA, VOIDS 375 MLS CLEAR YELLOW URINE. PT AWAKE AND ALERT TO SELF. NO REPORTS OF NAUSEA OR PAIN AT THIS TIME. PT TOLERATES ACTIVITY WELL. PT BACK TO BED, BED ALARM ON, CALL LIGHT IN REACH, FAMILY MEMBER X1 IN ROOM.
--- NOTE | 2024-01-09 18:05 | NUR ---
PT DENIES NAUSEA, NO S/SX OF PAIN. PT TOLERATES DINNER WELL. FAMILY AND PT WISH TO DISCHARGE. VSS. DISCUSSED DISCHARGE INSTRUCTIONS WITH PT AND DAUGHTERS X2, DAUGHTERS VERBALIZE UNDERSTANDING. RX OBTAINED BY DAUGHTER. ALL QUESTIONS ANSWERED. IV REMOVED BY GERSON CANCHOLA. FAMILY ASSISTS PT TO DRESS.
--- NOTE | 2024-01-09 18:10 | NUR ---
PT LEAVES UNIT VIA WHEELCHAIR ESCORTED BY AMAN CANCHOLA TO PRIVATE CAR DRIVEN BY DAUGHTER.
--- NOTE | 2024-01-11 06:56 | OR ---
[facility] [address], [place] [address] Signed DATE OF OPERATION: 01/09/2024 SURGEON: Mary Carmen Davis MD PREOPERATIVE DIAGNOSES: [id number] cholelithiasis, cholecystitis. POSTOPERATIVE DIAGNOSES: Zbnih-cl-mrcnyob cholelithiasis, cholecystitis. PROCEDURE: Laparoscopic cholecystectomy with intraoperative cholangiogram. ESTIMATED BLOOD LOSS: None. FINDINGS: Ion had some chronic inflammatory changes of her omentum to the gallbladder. She had at least six small around 3 to 4 mm. The intraoperative cholangiogram did not show any filling defect in the distal common bile duct. The contrast flowed nicely into the duodenum. INDICATIONS: Ion is an 88-year-old female, who is moderately demented, but still lives at home. She has family that helps her including her two daughters and I believe a grandson. She had fell earlier in the year and broke her hip. Her hip had to be pinned. She follows along with the bingo clerk about once a year. She had cardiac stents back in 2005. She has been on Plavix ever since. She also sees her primary care provider around once a year or little more. We had to obtain those records from the bingo clerk and the primary care provider and reviewed those. She had come into our emergency room with what they thought was chest pain and some emesis. However, her notes and her family confirmed that she has complained about this chest pain for years. The family tells me she has a trigger point that they put finger on and it relieves the chest pain. Her cardiac status really has not changed according to the notes. In the emergency room, her white count was borderline, but the troponin levels were fine. Her liver function tests were elevated. The lipase was just a little elevated at 101. I have been asked as a general surgeon on-call to admit her. She had a negative chest x-ray. The ultrasound did show the stones, but the gallbladder wall was not thickened. The common bile duct was normal at 5.9 mm. There was no pericholecystic inflammation. She received Rocephin and Flagyl. I also had our medical service see her as well. We had Electronically Signed By: MARY CARMEN DAVIS MD 01/11/24 0656 PATIENT NAME: ION CANTU OPERATIVE REPORT DATE OF : 33 REPORT #: [id number] PHYSICIAN: MARY CARMEN DAVIS MD PCP: LEAH TAMEZ PAC REPORT IS CONFIDENTIAL AND NOT TO BE RELEASED WITHOUT AUTHORIZATION [facility] [address], [place] [address] Signed to wait a full five days off the Plavix before we could do her surgery. In the meantime, her liver function tests went up a little but then came back down nicely. She has been back on her chronic medications including her blood pressure pills. I spoke with both of her daughters. The older daughter, Margy is the primary decision maker. We also met in the hospital. I have actually taken care of Margy in the past. I have actually done her gallbladder surgery. I brought a brochure from the office to go over with Margy and her mother Ion. We went through it page by page. They understand the location and function of the gallbladder. We discussed laparoscopic versus open cholecystectomy. They understand she has a 3% up to 7% chance of having stone in her main bile duct. ERCP is not available in our area. She would have to travel 3 hours away if indeed she needed an ERCP. In the meantime, we did an MRI and that was unremarkable. We also did a HIDA scan and the contrast did go through, but it was slow. Some of the contrast also went up into the gallbladder. After a long discussion with Ion and her daughter, we felt that we would go ahead and proceed with her surgery. There is risk including, but not limited to bleeding, infection, scarring, change in contour of the skin, damage to bowel, damage to the main bile duct, incisional hernias and other unforeseen comorbidities. They had expressed understanding and wished to proceed. PROCEDURE IN DETAIL: Ion was taken into the operating room and placed in the supine position under general endotracheal tube anesthesia. She was already on preoperative antibiotics. She had SCDs in place. We did not give her Lovenox because we were allowing the Plavix to wear off. She has had five full days off the Plavix. After this, she was prepped and draped in the usual sterile fashion. All trocars were placed in their usual positions under direct visualization of the camera without difficulty. The gallbladder was grasped and elevated in the right upper quadrant. We took pictures throughout for photodocumentation. We carefully took the omentum down off the gallbladder. We dissected out the triangle of ZUHAIR bluntly. We found the cystic artery as it past the lymph node of Calot. It was multiply clipped and divided. There was also a posterior branch later in the case that was farther up the gallbladder that we clipped. We inserted the intraoperative cholangiocatheter into the neck of the gallbladder as it joins the cystic duct. The intraoperative cholangiogram was found to be unremarkable. We secured the cystic duct stump with a PDS Endoloop and two clips were placed across the cystic duct stump to luz its location. After this, the gallbladder was very carefully and slowly removed from the gallbladder with the help of the cautery and placed into an EndoCatch bag. Hemostasis was excellent throughout the case. We then used our laparoscopic suturing device to pass 0-Vicryl suture on either side of the fascia subxiphoid trocar site. This was tied down to close this fascia primarily. All the gas was allowed to escape and all the trocars were removed along with the gallbladder. The gallbladder was opened on the back table for photodocumentation by our surgical nurse. After this, we closed the fascia of the supraumbilical trocar site with Electronically Signed By: MARY CARMEN DAVIS MD 01/11/24 0656 PATIENT NAME: ION CANTU OPERATIVE REPORT DATE OF : 33 REPORT #: [id number] PHYSICIAN: MARY CARMEN DAVIS MD PCP: LEAH TAMEZ PAC REPORT IS CONFIDENTIAL AND NOT TO BE RELEASED WITHOUT AUTHORIZATION [facility] [address] [place], [place] [address] Signed interrupted [id number] and simple 0-Vicryl sutures. Local anesthetic was injected into all trocar sites. Each trocar site was irrigated and suctioned out until clean. We closed the skin and dermis of each trocar site with interrupted 3-0 subcuticular Monocryl sutures. Dry gauze and tape was applied to all four incisions. After this, Ion was awakened from her anesthesia, extubated in the OR and taken to recovery room in stable condition. Mary Carmen Davis MD ALB/MODL /[id number] cc: MD Leah Camacho Copies: MARY CARMEN DAVIS MD, ELIZABETH PAC ~ Electronically Signed By: MARY CARMEN DAVIS MD 01/11/24 0656 PATIENT NAME: ION CANTU OPERATIVE REPORT DATE OF : 33 REPORT #: [id number] PHYSICIAN: MARY CARMEN DAVIS MD PCP: LEAH TAMEZ PAC REPORT IS CONFIDENTIAL AND NOT TO BE RELEASED WITHOUT AUTHORIZATION
--- NOTE | 2024-01-12 06:01 | DS ---
[facility] [address] [place], [place] [address] Signed ADMISSION DATE: 01/04/2024 DISCHARGE DATE: 01/09/2024 FINAL DIAGNOSIS: Yfbfn-yn-mtkcdsi cholelithiasis with cholecystitis. PROCEDURES: Laparoscopic cholecystectomy with intraoperative cholangiogram. HISTORY OF PRESENT ILLNESS: Ion is an 88-year-old female who is moderately demented but still is able to live at home with the help of her family. She fell in July of this year and broke her hip. Hip had to be pinned. She did quite well in that regard. She came into the emergency room with what was thought to be chest pain. However, she has had this chest pain for quite a few decades. Her family says there is a trigger point that will relieve the pain. On evaluation in the emergency room, however, the liver function tests were elevated and the white blood cell count was borderline high. The ultrasound confirmed cholelithiasis, but the gallbladder wall was not thickened. The common bile duct was unremarkable. Her lipase was just a little elevated just over 100. I have been asked to admit her as a general surgeon on-call. HOSPITAL COURSE: Ion was admitted as above and started on her antibiotics. We had the medical service see her as well. We followed her liver function tests and they decrease back to normal. We held the Plavix for five full days. We took her to surgery on 01/09/2024 and she underwent an uncomplicated laparoscopic cholecystectomy with intraoperative cholangiogram. We saw no filling defects in the common bile duct. In fact, the MRCP and HIDA scan were both negative. She did quite well and later that evening the family decided to take her home. They have a large family available to help her. DISCHARGE PLANS AND MEDICATIONS: Ion will go back to her house with her family including her two daughters and her nephew. She will be on her usual medications. She will start the Plavix one week after the surgery. She is going to check with her primary care provider and cigar packer and picker to see why she needs the ongoing use of Plavix at age 88. We gave her a small prescription for oxycodone 5 mg tablets one tablet p.o. q.8 hours p.r.n. for pain, dispense 10 tablets, no refills. Family told me that oxycodone increased her confusion after the hip surgery, so they simply gave her Tylenol. That is perfectly fine. She will remove the dressings in the morning and shower and bathe as usual. She will come to the office in about 7 to 14 days for surgical followup. She and her family had expressed Electronically Signed By: MARY CARMEN DAVIS MD 01/12/24 0601 PATIENT NAME: ION CANTU DISCHARGE SUMMARY DATE OF : 33 REPORT #: [id number] PHYSICIAN: MARY CARMEN DAVIS MD PCP: LEAH TAMEZ PAC REPORT IS CONFIDENTIAL AND NOT TO BE RELEASED WITHOUT AUTHORIZATION [address] [address] Signed understanding and agreed above plan. Mary Carmen Davis MD ALB/MODL /[id number] cc: Leah Tamez [facility] Mary Carmen Davis MD Copies: MARY CARMEN DAVIS MD ~ Electronically Signed By: MARY CARMEN DAVIS MD 01/12/24 0601 PATIENT NAME: ION CANTU DISCHARGE SUMMARY DATE OF : 33 REPORT #: [id number] PHYSICIAN: MARY CARMEN DAVIS MD PCP: LEAH TAMEZ PAC REPORT IS CONFIDENTIAL AND NOT TO BE RELEASED WITHOUT AUTHORIZATION
--- NOTE | 2024-01-12 13:07 | PATH ---
[facility] [address] [facility] [place], [place] [address] Signed SPECIMEN(S): A GALLBLADDER AND STONES SPECIMEN SOURCE: A. GALLBLADDER AND STONES CLINICAL HISTORY: Cholecystitis, cholelithiasis FINAL PATHOLOGIC DIAGNOSIS: Gallbladder and stones: - Acute and chronic calculous cholecystitis. JVR:kassie MICROSCOPIC EXAMINATION: Histologic sections of all submitted blocks are examined by light microscopy. These findings, together with the gross examination, support the pathologic diagnosis. GROSS DESCRIPTION: The specimen, labeled and designated "Cantu, Veronica, gallbladder," is received in formalin and consists of Specimen: Previously open gallbladder. Dimensions: 9.0 x 3.0 x 1.0 cm. Serosa: pink-willams congested smooth and glistening. Cystic Duct: Unobstructed. Calculi: 3 black calculi measuring 1.4 x 1.3 x 0.5 cm in aggregate. Mucosa: Brown with trabeculated and velvety areas. Wall thickness: 0.4 cm. Lymph node: No pericystic lymph nodes are grossly identified. Additional: None. Business Development Director sections are submitted in (A1). PEDRO (under the direct supervision of a pathologist) The Gross Description was prepared using a voice recognition system. The report was reviewed for accuracy; however, sound-alike word errors, addition and/or deletions may occur. If there is any question about this report, please contact Client Services. PERFORMING LABORATORY: Technical component was performed by [facility], [address] [place] [id number] (CLIA# [id number]). Professional interpretation was performed by [facility] - [place], [address] PATIENT NAME: ION CANTU PATHOLOGY DATE OF : 33 REPORT #: [id number] PHYSICIAN: [facility] PATH[facility] PCP: DESEAN TAMEZ PAC REPORT IS CONFIDENTIAL AND NOT TO BE RELEASED WITHOUT AUTHORIZATION [facility] [address] [place], [place] [address], [place] [address] (CLIA#: [id number]). Diagnostician: Jose J Setve MD Pathologist Electronically Signed 01/12/2024 Copies: ~ PATIENT NAME: ION CANTU PATHOLOGY DATE OF : 33 REPORT #: [id number] PHYSICIAN: [facility] PCP: DESEAN TAMEZ PAC REPORT IS CONFIDENTIAL AND NOT TO BE RELEASED WITHOUT AUTHORIZATION
== END 2024-01-09 14:10 | disposition home or self-care (01) | DRG 419 ==
LOC: ED 02:32 → CCU 05:23 → MS 05:23
PROVIDERS: Family Medicine; Student in an Organized Health Care Education/Training Program; ADMIT Colon & Rectal Surgery; ATTEND Colon & Rectal Surgery
PROC: 0FT44ZZ Resection of Gallbladder, Percutaneous Endoscopic Approach (ICD-10-PCS; principal; 2024-01-09 09:00)
DX: K81.0 Acute cholecystitis (principal); F03.B0 Unspecified dementia, moderate, without behavioral disturbance, psychotic disturbance, mood disturbance, and anxiety; E11.9 Type 2 diabetes mellitus without complications; E03.9 Hypothyroidism, unspecified; E87.6 Hypokalemia; M54.9 Dorsalgia, unspecified; I25.10 Atherosclerotic heart disease of native coronary artery without angina pectoris; I11.0 Hypertensive heart disease with heart failure; I50.9 Heart failure, unspecified; E83.39 Other disorders of phosphorus metabolism; Z95.5 Presence of coronary angioplasty implant and graft; Z90.710 Acquired absence of both cervix and uterus; I25.2 Old myocardial infarction; Z90.49 Acquired absence of other specified parts of digestive tract; Z79.890 Hormone replacement therapy; Z79.4 Long term (current) use of insulin; Z79.02 Long term (current) use of antithrombotics/antiplatelets; Z79.899 Other long term (current) drug therapy; Z88.0 Allergy status to penicillin; Z88.8 Allergy status to other drugs, medicaments and biological substances
CPT/HCPCS: 00790; 36415; 71045; 74181; 74300; 76705; 78226; 80048; 80053; 80074; 80307; 81001; 83690; 83735; 83880; 84100; 84484; 85025; 85610; 86850; 86900; 86901; 93005; 93010; 96374; 96375; 99285-25; A9270; A9537; J0131; J0360; J0696; J1100; J1815; J2003; J2405; J2704; J3010; J3480; J3490; J7060; J7121; Q0177; Q9967

== ENCOUNTER 2024-09-21 12:30 | Emergency (ER) | payer OTHER ==
[~2024-09-21] VITALS: Ht 160 cm; Wt 69.0 kg
[~2024-09-21 12:30] MED LIST changes: +ASPIRIN EC325 MG PO; +MULTI VITAMIN1 EACH PO; +OXYCODONE HCL5 MG PO; +PRESERVISION A1 EAC3 PO; +VITAMIN D325 MCG PO
[2024-09-21 13:43] LABS: BASOPHILS 0.4 % (0.1-1.2); EOSINOPHILS 0.2 % (0.7-5.8); LYMPHOCYTES 16.3 % (19.3-51.7); MCH 28.7 PG (25.6-32.2); MCHC 31.9 g/dL (32.2-35.5); MCV 89.7 fL (79.4-94.8); MONOCYTES 5.2 % (4.7-12.5); NEUTROPHILS 77.7 % (34.0-71.1); RBC 4.78 M/uL (3.93-5.22)
[2024-09-21 14:00] LABS: ALT (SGPT) 28.0 U/L (14-59); AST (SGOT) 35.0 U/L (15-37); GLOMERULAR FILTRATION RATE,EST 30.0 mL/min (>60); PROTEIN, TOTAL 7.1 g/dL (6.4-8.2); UREA NITROGEN 32.0 mg/dL (7-18)
[2024-09-21 14:03] LABS: LACTIC ACID, BLOOD 1.4 mmol/L (0.4-2.0)
[2024-09-21 14:17] LABS: BLOOD/HGB, URINE TRACE-I (Negative); KETONE, URINE TRACE (Negative); LEUK ESTERASE, URINE SMALL (negative); NITRITE, URINE NEGATIVE (negative)
[2024-09-21 14:25] LABS: CRYSTALS, URINE NONE SEEN (0-1+); EPITHELIAL CELLS, URINE SQUAMOUS 1+ /lpf (0-1+)
[2024-09-21 14:26] LABS: BACTERIA, URINE 2+ /hpf (negative); CASTS, URINE NONE SEEN \\lpf; REFLEX CULTURE, URINE Yes (No)
[2024-09-21] MEDS ORDERED: CEPHALEXIN500 MG PO (15:26)
[2024-09-21] MEDS ORDERED: CEPHALEXIN MONOHYDRATE 500 MG CAP PO ONE (15:30)
[2024-09-21 16:00] VITALS: BP 161/58
--- NOTE | 2024-09-21 21:57 | EKG ---
[facility] [address] [facility] [place] [address] Signed Sinus bradycardia Left axis deviation Left ventricular hypertrophy with repolarization abnormality ( R in aVL , [place] product ) Anteroseptal infarct (cited on or before 22-OCT-2021) Abnormal ECG When compared with ECG of 05-JAN-2024 20:27, Nonspecific T wave abnormality, worse in Anterior leads T wave inversion less evident in Lateral leads Confirmed by Jae Carrillo MD () on 09/21/2024 9:56:51 PM Electronically Signed By: JAE CARRILLO MD 09/21/24 [id number] PATIENT NAME: ION CANTU Electrocardiogram DATE OF : 33 PHYSICIAN: JAE CARRILLO MD REPORT #: [id number] REPORT IS CONFIDENTIAL AND NOT TO BE RELEASED WITHOUT AUTHORIZATION
== END 2024-09-21 16:00 | disposition home or self-care (01) ==
LOC: ED 12:30
PROVIDERS: Emergency Medicine
DX: R41.0 Disorientation, unspecified (principal); N39.0 Urinary tract infection, site not specified; I10 Essential (primary) hypertension; E11.9 Type 2 diabetes mellitus without complications; I50.9 Heart failure, unspecified; Z87.891 Personal history of nicotine dependence; Z88.0 Allergy status to penicillin; Z88.8 Allergy status to other drugs, medicaments and biological substances; Z79.4 Long term (current) use of insulin; Z79.890 Hormone replacement therapy; Z79.899 Other long term (current) drug therapy
CPT/HCPCS: 36415; 51701; 70450; 80053; 81001; 83605; 83735; 85025; 87077; 87088; 87186; 93005; 93010; 99285-25; A9270